=== PATIENT | female | born 1980 | race Caucasian/White ===

== ENCOUNTER → 2018-11-24 | Outpatient (CLI) | payer OTHER ==
[2018-11-24 10:56] LABS: Basophils # (A) 0.1 k/uL (0-0.2); Basophils % (A) 1 %; Eosinophils # (A) 0.1 k/uL (0-0.7); Eosinophils % (A) 1 %; HCT 41.9 % (34.0-46.0); HGB 13.6 gm/dL (11.4-16.0); Lymphocytes # (A) 2.9 k/uL (1.0-4.8); Lymphocytes % (A) 33 %; MCHC 32.6 g/dL (31.0-37.0); MCV 89.2 fL (80.0-100.0); Mean Platelet Volume 6.4; Monocytes # (A) 0.3 k/uL (0-1.0); Monocytes % (A) 3 %; Neutrophils # (A) 5.4 k/uL (1.3-7.7); Neutrophils % (A) 60 %; Platelet Count 239 k/uL (150-450); RDW 12.3 % (11.5-15.5)
== END | disposition home or self-care (01) ==
LOC: LABPAT 09:49
PROVIDERS: ATTEND Obstetrics & Gynecology
DX: Z01.812 Encounter for preprocedural laboratory examination (principal)
CPT/HCPCS: 36415; 85025

== ENCOUNTER 2018-12-05 07:36 | Day surgery (SDC) | payer OTHER ==
[2018-12-03 11:14] VITALS: BMI 27.4
--- NOTE | 2018-12-04 11:53 | HP ---
HISTORY AND PHYSICAL DATE OF SURGERY: 12/05/2018 HISTORY OF PRESENT ILLNESS: The patient is a 38-year-old 3, para 3-0-0-3, who has, to this point, been managed for contraception effectively with oral contraceptive pills. She has at this time opted to proceed with permanent sterilization, understanding that there are other long-term but reversible alternatives. PAST MEDICAL HISTORY: Significant for only a remote history of abnormal Pap smear. PAST SURGICAL HISTORY: Significant for a LEEP procedure again in the remote past. OBSTETRICAL HISTORY: 3, para 3-0-0-3 with 3 term vaginal deliveries without complications. Method of contraception is oral contraceptive pills. GYNECOLOGIC HISTORY: Unremarkable with no history of any infections to include STDs. FAMILY HISTORY: Noncontributory. SOCIAL HISTORY: The patient is engaged and a nonsmoker, though she has a remote history of smoking. She denies any significant social concerns. CURRENT MEDICATIONS: Ortho Cyclen daily. ALLERGIES: No known drug allergies. REVIEW OF SYSTEMS: Confined to history of present illness. PHYSICAL EXAMINATION: Vital signs are stable. The patient is afebrile. In general, this is a well- developed, well-nourished white female in no acute distress. Her heart has a regular rhythm and rate without murmur. Her lungs are clear to auscultation bilaterally in all wray. Her abdomen is nondistended, has normoactive bowel sounds, soft, nontender, and without any palpable masses, hepatosplenomegaly, or hernias. Her extremities are without any cyanosis, clubbing, or edema and are nontender to palpation bilaterally. Pelvic examination demonstrates normal external genitalia and BUS with normal vaginal mucosa and cervix. There is no cervical motion tenderness. Uterus is approximately 5- 6 weeks' in size, midplane, mobile, nontender, and normal in shape. The adnexa are normal and nontender without mass bilaterally. ASSESSMENT AND PLAN: Undesired fertility: We have discussed alternatives including long-term but reversible methods and she has declined these in favor of proceeding with diagnostic laparoscopy for bilateral tubal occlusion with Filshie clips. The risks and complications of the procedure have been thoroughly discussed including the risks for bleeding, bleeding requiring transfusion, infection, and injury to local structures to specifically include the bowel, bladder, and ureters. She has understood all of this and agreed to proceed. She also understands the permanent nature of the procedure as well as its potential failure rate. MMLAURENCEL / IJN: [id number] /
[~2018-12-05 07:36] MED LIST: DEXAMETHASONE SOD PHOSPHATE 10 MG/ML 1 ML VIAL IV ONE; LACTATED RINGERS 1,000 ML IV SCH; LIDOCAINE 1% 20 ML VIAL (10MG/ML) FOR IV START INTRADERMA PRN; ONDANSETRON 4 MG/2 ML VIAL IVP ONE; Pre Op ABX Message 1 EACH MISC MISCELLANE ONE; SCOPOLAMINE 1.5MG/72HR PATCH TRANSDERM ONE
[2018-12-05] MEDS ORDERED: LACTATED RINGERS 1,000 ML IV ONE ×2 (08:15→10:40)
[2018-12-05] MEDS ORDERED: DEXAMETHASONE SOD PHOSPHATE 10 MG/ML 1 ML VIAL IV ONE (08:16)
[2018-12-05] MEDS ORDERED: ONDANSETRON 4 MG/2 ML VIAL IVP ONE ×2 (08:16→12:36)
[2018-12-05] MEDS ORDERED: SCOPOLAMINE 1.5MG/72HR PATCH TRANSDERM ONE (08:16)
[2018-12-05] MEDS ORDERED: MIDAZOLAM 2 MG/2 ML VIAL ONE (09:17)
[2018-12-05] MEDS ORDERED: LIDOCAINE 1% INJ 10MG/ML (20 ML MDV) ONE (09:17)
[2018-12-05] MEDS ORDERED: fentaNYL (PF) 50 MCG/ML 2 ML AMP ONE (09:17)
[2018-12-05] MEDS ORDERED: SUCCINYLCHOLINE CHLORIDE 100 MG/5 ML SYR IV ONE (09:17)
[2018-12-05] MEDS ORDERED: KETOROLAC 30 MG/ML 1 ML VIAL ONE (09:17)
[2018-12-05] MEDS ORDERED: PROPOFOL 10 MG/ML 20 ML VIAL IV ONE (09:17)
[2018-12-05] MEDS ORDERED: ROPIVACAINE 5 MG/ML 30 ML VIAL MISCELLANE ONE ×2 (09:35)
[2018-12-05] MEDS ORDERED: diphenhydrAMINE 50 MG/ML 1 ML VIAL IVP PRN (10:01)
[2018-12-05] MEDS ORDERED: Acetaminophen-Codeine 300-30mg TAB PO PRN ×2 (10:01)
[2018-12-05] MEDS ORDERED: KETOROLAC 30 MG/ML 1 ML VIAL IVP PRN (10:01)
[2018-12-05] MEDS ORDERED: ONDANSETRON 4 MG/2 ML VIAL IVP PRN (10:01)
[2018-12-05] MEDS ORDERED: SIMETHICONE 80 MG CHEWABLE PO PRN (10:01)
[2018-12-05] MEDS ORDERED: METOCLOPRAMIDE 5 MG/ML 2 ML VIAL IVP PRN (10:01)
--- NOTE | 2018-12-05 10:08 | P.OP ---
Date of Procedure: 12/05/18 Preoperative Diagnosis: #1. Multiparity #2. Undesired fertility Postoperative Diagnosis: Same Procedure(s) Performed: #1. Laparoscopic bilateral tubal occlusion with Filshie clips Anesthesia: MELISSA Surgeon: Pedro Campbell Estimated Blood Loss (ml): 2 IV fluids (ml): 500 Urine output (ml): 20 Pathology: none sent Condition: stable Disposition: PACU Operative Findings: Preoperative pelvic examination to initiate a 4 week midplane to slightly anteverted mobile normal shaped uterus with normal adnexa bilaterally. Intraoperatively, the uterus, tubes, and ovaries were entirely normal to inspection though there was a roughly 2 cm left ovarian cyst likely consistent with the a follicle. There is no evidence of any endometriosis nor any pathology throughout the entire pelvis. The small and large bowel, appendix, liver, and diaphragm were normal to inspection. Description of Procedure: The patient was prepped and draped in usual fashion after general endotracheal anesthesia was administered by the anesthesiologist. A speculum was placed and the anterior lip of the cervix grasped with a single-tooth tenaculum allowing placement of an acorn cannula for manipulation. The bladder was drained of approximately 20 mL of clear marilyn urine. Attention was turned to the abdomen where a roughly 5 mm incision was made in the transverse plane underneath the umbilicus allowing insertion of a 5 mm optical trocar under direct visualization without difficulty. A pneumoperitoneum was instilled and Trendelenburg positioning utilized to sweep some of the bowel from the pelvis. A site was elected approximate 4 cm above the pubic symphysis in the midline where an 8 mm incision was made in the transverse plane allowing insertion of an 8 mm trocar under direct visualization without difficulty. The blunt probe was utilized to sweep further bowel from the pelvis. The findings are benign as noted above. The probe was replaced with a Filshie clip applicator which was used to place a Filshie clip firmly across the entire thickness of the fallopian tube approximately 2-3 cm from the cornu of the uterus on each side. Once done, the remainder of the abdomen was examined with the findings of being benign as noted above. The pneumoperitoneum was thoroughly evacuated through the 2 ports and the ports removed. The 2 skin incisions were closed with interrupted subcuticular stitches of 4-0 Vicryl followed by Steri-Strips placed with Mastisol. Each incision was infused with 4 mL of half percent ropivacaine without epinephrine. Estimated blood loss for the case was less than 2 mL. There were no complications. All sponge, instrument, and needle counts were correct. The patient tolerated the procedure well and proceeded to the recovery room in stable condition.
[2018-12-05 10:14] VITALS: TEMP 97.2
[2018-12-05] MEDS ORDERED: LACTATED RINGERS 1,000 ML IV SCH (10:15)
[2018-12-05] MEDS: HYDROmorphone 0.5 MG/0.5 ML SYRINGE IVP PRN ×2 (10:17→10:23)
[2018-12-05 10:57] VITALS: RESP 16
[2018-12-05] MEDS ORDERED: Acetaminophen-Codeine 300-30mg TAB PO ONE ×2 (11:02→11:40)
[2018-12-05 13:20] VITALS: BP 141/77; PULSE 51
== END 2018-12-05 13:53 | disposition home or self-care (01) ==
LOC: OR 07:36
PROVIDERS: ATTEND Obstetrics & Gynecology
DX: Z30.2 Encounter for sterilization (principal); Z79.3 Long term (current) use of hormonal contraceptives; Z87.891 Personal history of nicotine dependence
CPT/HCPCS: 81025; 58671; J2250; J1100; J2405; J2001; J3010; J1885; J2795; J0330; J2704; J1170